=== PATIENT | male | born 1980 | race Caucasian/White ===

== ENCOUNTER → 2021-09-02 14:09 | Outpatient (BNVA) | payer OTHER, SELFPAY | PROVIDERS: Visit Provider Nurse Practitioner | DX: M79.644 Pain in right finger(s) (principal) | CPT/HCPCS: 73130 ==

== ENCOUNTER → 2022-01-06 13:31 | Outpatient (BNVA) | payer OTHER, SELFPAY | PROVIDERS: Referring Provider Family Medicine; Visit Provider Orthopaedic Surgery | DX: M25.561 Pain in right knee (principal); M25.361 Other instability, right knee; Z98.890 Other specified postprocedural states; M17.11 Unilateral primary osteoarthritis, right knee | CPT/HCPCS: 73560; 73565; 99203; 99204 ==

== ENCOUNTER → 2025-04-16 08:33 | Outpatient (BNVA) | payer OTHER, SELFPAY | PROVIDERS: PCP Family Medicine; Visit Provider Nurse Practitioner | DX: S80.851A Superficial foreign body, right lower leg, initial encounter (principal); M17.11 Unilateral primary osteoarthritis, right knee; X58.XXXA Exposure to other specified factors, initial encounter | CPT/HCPCS: 36415; 73590; 80053; 85025; 99204 ==

== ENCOUNTER 2025-04-18 10:48 | Day surgery (SDC) | payer OTHER, SELFPAY ==
[2025-04-18] VITALS (10 sets, daily range): BP systolic 100–130; BP diastolic 53–88; PULSE 62–88; RESP 10–18; TEMP 36.2–36.8; O2SAT 94–97
--- NOTE | 2025-04-18 11:56 | W.PM.OPSUD ---
Surgery/Procedure H&P Update DATE OF PROCEDURE: April 18, 2025 DATE H&P PERFORMED: 05/16/25 H&P UPDATE INFORMATION: I have reviewed H&P completed within last 30 days, I have examined patient prior to procedure and No changes to prior documentation PREOP DIAGNOSIS: Foreign body right lower leg PLANNED PROCEDURE: Operation Date: 04/18/25 12:55 Proposed Procedures p RIGHT Distal Koehler Removal of Foreign Body(Right) - Panfilo Saini MD
--- NOTE | 2025-04-18 13:09 | ANES.PREANE2 ---
Pre-Anesthetic Assessment Height/Weight: Height 5 ft 11 in Temp Pulse Resp BP Pulse Ox O2 Del Method 98.3 F 88 18 122/88 95 Room Air 04/18/25 11:33 04/18/25 11:33 04/18/25 11:33 04/18/25 11:33 04/18/25 11:33 04/18/25 11:37 Preop Diagnosis: Foreign body right lower leg Operation Date: 04/18/25 12:55 Proposed Procedures p RIGHT Distal Koehler Removal of Foreign Body(Right) - Panfilo Saini MD Was Beta Fernando taken within 24 hours: N/A Was Clonidine taken within 24 hours: N/A Last intake: Intake Last Liquid Date 04/17/25 Last Liquid Time 21:00 Last Solid Date 04/17/25 Last Solid Time 20:30 Social Tobacco and No alcohol Exam alert, oriented x 3, clear to auscultation bilaterally and regular rate & rhythm Airway Submandibular: within normal limits Cervical ROM: within normal limits Mallampati: Class III Comments: Comments: Poor dentition, denies any loose teeth Anesthetic Plan ASA status: 2 Anesthesia: General Other: No prior issues with anesthesia NPO since yesterday evening History of GERD, controlled with omeprazole Current smoker Denies any cardiac issues METs greater than 4 Plan for general anesthesia with LMA Medications/Allergies Home Medications ?Medication ?Instructions ?Recorded ?Confirmed ?Last Taken ?Type omeprazole 40 mg capsule,delayed 40 mg PO DAILY 04/16/25 04/17/25 04/17/25 History release Allergies Allergy/AdvReac Type Severity Reaction Status Date / Time Penicillins Allergy ALGY-Rash Verified 04/18/25 11:15 Current Medications Generic Name Dose Route Start Last Admin Trade Name Bola PRN Reason Stop Dose Admin Sodium Chloride 1,000 mls @ 30 mls/hr 04/18/25 11:15 04/18/25 11:49 Sodium Chloride 0.9% IV 04/19/25 11:14 30 mls/hr .Q24H PJUA Administration PFSH Anesthesia Medical History (Updated 04/16/25 @ 17:30 by MO Glover) Foreign body of right lower leg, initial encounter Social History Smoking and tobacco/nicotine status: current every day tobacco/nicotine user
[2025-04-18] MEDS: BUPivacaine 0.5% INJ 30 mL INJECTION (14:00)
--- NOTE | 2025-04-18 14:08 | P.OP_ITS ---
Operative Report Date of procedure: April 18, 2025 Surgeon: Panfilo Saini MD Procedure: Preoperative diagnosis: Foreign body anterior right lower extremity Postoperative diagnosis: Same Procedure: Excision of foreign body from right lower extremity Surgeon: Panfilo Saini MD Communications Engineer: NIVIA Glover's assistance was necessary for patient positioning, assistance during procedure, wound closure and dressing placement Anesthesia: General Specimen: Metal fragment Indications: Travis is a 44-year-old male who was working on the engine and was striking it when a piece of metal flew off and lodged into the anterior portion of his lower extremity about mid calf region. Initially thought it did come out but has continued to bother him and seems to be swollen and possibly working its way up to the skin. He is having a bit of difficulty with this because where this metal when and it hits the top of his boot line and therefore he continues to have pain and problems with this. Therefore after x-ray evaluation as well as clinical evaluation by Margo Valderrama is felt patient most benefit from excision of this foreign body from his lower extremity. All risk benefits treatment alternatives been discussed and he is willing to proceed with this at this time. Procedure: After obtaining consent patient taken to the operative room placed Table supine position general anesthetic administered. Once good anesthesia was achieved right lower extremities prepped and draped usual fashion. After surgical timeout fluoroscopy was used to identify the location of the metal fragment. This is marked in the skin very close to the entry point. At this point #15 blade was used to elliptically cut around the entry point to remove that scar tissue and dissect down down to subcutaneous tissues. By visualization the metal fragment could be seen and small hemostats were used to pull it out of the tissues. Repeat fluoroscopy demonstrate that the large metal fragment was gone from his leg. Wound was washed with sterile irrigation. It was closed with some subcutaneous Monocryl as well as 3-0 Prolene superficially. Wound was injected with half percent Marcaine plain for postoperative pain management. Wound is clean and dry dressed Xeroform gauze to gauze dressing Kerlix wrap and Duke wrap for compression. Patient awakened transferred cover in stable condition
--- NOTE | 2025-04-18 14:27 | PC.NURSE ---
Patient wanted removed foreign body, approved so foreign body sent to CS to be cleaned. CS reported that they were unable to clean said foreign body, so the patient could not take it home. notified. instructed that patient could see the foreign body when he wakes up from anesthesia but afterwards the foreign body is to be thrown away by nursing staff. [facility] staff notified of order.
--- NOTE | 2025-04-18 15:25 | ANE.PACU2 ---
Inpatient post-anesthesia follow up: Airway intact: Yes Vital signs: Temperature 97.9 F Pulse Rate 72 Respiratory Rate 18 Blood Pressure 126/68 Pulse Oximetry 96 Oxygen Delivery Me thod Room Air Oxygen Flow Rate 8 Fraction of Inspir ed Oxygen Hydration adequate: Yes Nausea and vomiting: No Pain level: 1 Mental status: Baseline
--- NOTE | 2025-04-18 16:35 | XR_ITS ---
WS: [id number] XR tibia fibula RT 2V [id number] REASON FOR EXAM: OR PIC, FOREIGN BODY REMOVAL FINDINGS: 2 metallic foreign bodies adjacent to the distal tibia. Removal of the larger metallic foreign body adjacent to the distal tibia. The much smaller foreign body remains. XR/XR tibia fibula RT 2V [id number] IMPRESSION: Metallic foreign body removal as above.
== END 2025-04-18 15:25 | disposition home or self-care (01) ==
PROVIDERS: PCP Family Medicine; Visit Provider Orthopaedic Surgery
PROC: (CPT 10120; principal; 2025-04-18 12:55)
DX: S80.851A Superficial foreign body, right lower leg, initial encounter (principal); W45.8XXA Other foreign body or object entering through skin, initial encounter; K21.9 Gastro-esophageal reflux disease without esophagitis; F17.200 Nicotine dependence, unspecified, uncomplicated
CPT/HCPCS: 10120; 73590; 76000; J1100; J2250; J2405; J2704; J3010; J3490; J7030; J9999